=== PATIENT | female | born 1960 | race Caucasian/White ===

== ENCOUNTER → 2017-06-02 | Outpatient (CLI) | payer OTHER ==
--- NOTE | 2017-06-02 10:38 | NM ---
EXAMINATION TYPE: NM stress cardiolite complete DATE OF EXAM: 06/02/2017 COMPARISON: NONE HISTORY: Bundle branch block TECHNIQUE: After the intravenous administration of 10.66 mCi Tc 99m Sestamibi - Rest images obtained 55 minutes post injection. The patient exercised using a ULICES protocol and 1 minute prior to peak exercise was injected with 28 mCi Tc 99m Sestamibi - Stress images obtained 25 minutes post injectio n. FINDINGS: Targeted heart rate was achieved during performance of the study. Review of stress and rest SPECT ev ges demonstrates no distinct perfusion abnormality. Gated analysis shows normal wall motion with an estimated left ventricular ejection fraction of 68 %. IMPRESSION: No scintigraphic evidence for reversible ischemia
--- NOTE | 2017-06-02 14:19 | EST ---
EXERCISE STRESS DATE OF SERVICE: 06/02/2017 AGE: 56 SEX: Female HT: 5'1" WT: 147 pounds PROTOCOL: CARDIOLITE ULICES STAGE: II DURATION OF EXERCISE: 5 minutes HEART RATE REST: 83 BLOOD PRESSURE REST: 128/92 MAXIMUM HEART RATE ACHIEVED: 147 MAXIMUM BLOOD PRESSURE: 174/97 85% MPHR: 154 100% MPHR: 163 METS: 6.0 INDICATIONS: Right bundle branch block. CLINICAL INFORMATION: Baseline rhythm is sinus mechanism, rate of 83, normal axis and intervals with RSR prime. Baseline blood pressure 128/92 mmHg. Patient exercised on Ulices protocol for 5 minute reaching peak rate 147 beats per minute, which is equal to 90% maximum predicted heart rate. Peak blood pressure 174/97 mmHg. Test was terminated secondary to fatigue. There was no chest pain. Electrocardiograph monitoring revealed no evidence of diagnostic ischemic ST deviation. Cardiolite was injected at peak exercise. CONCLUSION: 1. Decreased exercise tolerance with normal electrocardiograph response to exercise. 2. Nuclear images will be reported separately. MMODL / IJN: [id number] /
== END | disposition home or self-care (01) ==
LOC: RADNMMAIN 07:47
PROVIDERS: ATTEND Internal Medicine
DX: I45.10 Unspecified right bundle-branch block (principal)
CPT/HCPCS: 93017; 78452; A9500

== ENCOUNTER 2018-02-08 09:39 | Day surgery (SDC) | payer OTHER ==
[2018-02-01 11:47] VITALS: BMI 27.3
--- NOTE | 2018-02-07 16:08 | HP ---
HISTORY AND PHYSICAL DATE OF SURGERY: 02/08/2018 Dena Moulton is a 57-year-old patient seen with progressive right knee pain. We discussed treatment options. She elected to proceed with arthroscopy. Consent was obtained. PAST MEDICAL HISTORY: Hyperlipidemia. PAST SURGICAL HISTORY: Noncontributory. DAILY MEDICATIONS: 1. Atorvastatin. 2. Furosemide. 3. [place]. ALLERGIES: NONE REPORTED. SOCIAL HISTORY: Patient smokes one pack cigarettes a day. PHYSICAL EVALUATION OF RIGHT KNEE: Range of motion negative negative 2 to 110 degrees. Mild effusion. Tenderness, medial and lateral joint lines. Positive medial Jack's. Positive lateral Jack's. Ligaments stable. Hip rotation without pain. Distal neurovascular exam intact. RADIOGRAPHS: Radiographs of the right knee revealed moderate osteoarthritic changes. Right knee MRI revealed lateral meniscal tear, osteoarthritis and joint effusion. IMPRESSION: 1. Internal derangement of right knee with meniscal tear. 2. Right knee osteoarthritis. 3. Hyperlipidemia. PLAN: Right knee arthroscopy with partial meniscectomy and debridement. MMODL / IJN: [id number] /
[~2018-02-08 09:39] MED LIST: ceFAZolin 1,000 MG in EMPTY BAG 1 BAG IVPB ONE
[2018-02-08] MEDS ORDERED: LACTATED RINGERS 1,000 ML IV ONE ×2 (10:20→13:47)
[2018-02-08] MEDS ORDERED: LIDOCAINE 1% 20 ML VIAL (10MG/ML) FOR IV START INTRADERMA ONE (10:20)
[2018-02-08] MEDS ORDERED: ONDANSETRON 4 MG/2 ML VIAL IVP ONE (10:21)
[2018-02-08] MEDS ORDERED: PROPOFOL 10 MG/ML 20 ML VIAL IV ONE (12:20)
[2018-02-08] MEDS ORDERED: ceFAZolin 1,000 MG VIAL ONE (12:20)
[2018-02-08] MEDS ORDERED: LIDOCAINE 1% INJ 10MG/ML (20 ML MDV) ONE (12:20)
[2018-02-08] MEDS ORDERED: MIDAZOLAM 2 MG/2 ML VIAL ONE (12:20)
[2018-02-08] MEDS ORDERED: fentaNYL (PF) 50 MCG/ML 2 ML AMP ONE (12:20)
[2018-02-08] MEDS ORDERED: SUCCINYLCHOLINE CHLORIDE 100 MG/5 ML SYR IV ONE (12:20)
[2018-02-08] MEDS ORDERED: BUPIVACAIN-EPI 0.25%-1:200,000 30 ML VIAL INTRAARTIC ONE (12:35)
--- NOTE | 2018-02-08 13:15 | P.OP ---
Date of Procedure: 02/08/18 Preoperative Diagnosis: Internal range right knee Postoperative Diagnosis: 1. Tear medial and lateral meniscus right knee 2. Grade 2 chondromalacia medial femoral condyle right knee 3. Grade 3 chondromalacia patella right knee 4. Reactive synovitis medial, lateral and suprapatellar compartments right knee Procedure(s) Performed: 1. Arthroscopic partial medial and lateral meniscectomy right knee 2. Arthroscopic chondroplasty medial femoral condyle right knee 3. Arthroscopic chondroplasty patella right knee 4. Arthroscopic partial synovectomy medial, lateral and suprapatellar compartments right knee Anesthesia: SADAFA, local Surgeon: Buddy Perez Estimated Blood Loss (ml): 5 Pathology: none sent Condition: stable Disposition: PACU Indications for Procedure: 57-year-old patient seen with progressive right knee pain. After having treatment options discussed, she elected to proceed with arthroscopy. Operative Findings: see description of procedure Description of Procedure: Patient was taken to the operative suite. Patient underwent a general anesthetic by the department of anesthesia. Patient was given preoperative antibiotics. The right lower extremity was placed in a well-padded arthroscopic leg barney. The right leg was prepped and draped in the normal sterile orthopedic fashion. A lateral parapatellar and suprapatellar incision was made. Trochars were inserted. Arthroscopy was initiated. Suprapatellar pouch revealed diffuse thick reactive synovitis. The patellofemoral joint appeared to articulate congruently. There was grade 3 chondromalacia of the patella with some small osteochondral tears present. The scope was guided into the medial gutter. No loose bodies or plica were identified. The scope was then guided into the medial compartment. A medial parapatellar incision was made. Trocar inserted followed by probe. There was a radial tear posterior horn medial meniscus. There were grade 2 chondromalacia changes medial femoral condyle with some osteochondral tears present. There was reactive synovitis anteriorly. I performed a partial medial meniscectomy down to stable tissue. I performed a chondroplasty of the medial femoral condyle down to stable tissue. I performed a partial synovectomy. The residual meniscus was probed and found to be stable. The residual osteochondral surface was stable. There was good decompression of the synovitis. Scope and probe were then guided into the intercondylar notch. Cruciates were identified, probed and found to be stable. The scope and probe were then guided into lateral compartment. There was a complex tear involving the anterior horn and midbody of the lateral meniscus. There was thick synovitis anteriorly. There were mild grade 1 chondromalacia changes. I performed a partial lateral meniscectomy down to stable tissue. I performed a partial synovectomy decompressing the reactive synovitis. The residual meniscus was stable. There was good decompression of the synovitis. The scope was in guided back into the suprapatellar compartment. I introduced a motorized shaver into the super patellar compartment. I debrided some piecemeal fragments of meniscus I encountered. I performed a chondroplasty of the patella down to stable tissue. I performed a partial synovectomy. The residual osteochondral surface of the patella stable. There was good decompression synovitis. Instruments were now removed from the joint. The joint was infiltrated with .25% Marcaine. Steri-Strips were applied to the portal sites. Sterile dressings were applied. The patient was placed into a EMELINA hose. No tourniquet was utilized. The patient was awakened, transferred to a bed and taken to recovery stable satisfactory condition.
[2018-02-08 13:21] VITALS: TEMP 96.8
[2018-02-08 13:25] VITALS: RESP 16
[2018-02-08] MEDS: HYDROmorphone 1 MG/ML 1 ML SYRINGE IVP ONE ×4 (13:25→13:45)
[2018-02-08] MEDS ORDERED: KETOROLAC 30 MG/ML 1 ML VIAL IVP ONE (13:54)
[2018-02-08] MEDS ORDERED: HYDROcodone/APAP 10-325MG 1 EACH TAB PO ONE ×2 (14:20)
[2018-02-08 14:35] VITALS: BP 135/75; PULSE 77
== END 2018-02-08 14:52 | disposition home or self-care (01) ==
LOC: OR 09:39
PROVIDERS: ATTEND Orthopaedic Surgery
DX: M23.341 Other meniscus derangements, anterior horn of lateral meniscus, right knee (principal); M23.321 Other meniscus derangements, posterior horn of medial meniscus, right knee; M65.861 Other synovitis and tenosynovitis, right lower leg; M22.41 Chondromalacia patellae, right knee; F41.9 Anxiety disorder, unspecified; E78.5 Hyperlipidemia, unspecified; F17.210 Nicotine dependence, cigarettes, uncomplicated; M17.11 Unilateral primary osteoarthritis, right knee; Z79.891 Long term (current) use of opiate analgesic; Z79.899 Other long term (current) drug therapy
CPT/HCPCS: 81025; 29880; J2250; J2405; J0690; J2001; J3010; J1885; J1170; J0330; J2704

== ENCOUNTER → 2019-06-17 | Outpatient (CLI) | payer MEDICARE, OTHER ==
--- NOTE | 2019-06-18 11:48 | MR ---
EXAMINATION TYPE: MR knee RT wo con DATE OF EXAM: 06/17/2019 COMPARISON: Outside radiographs dated 05/21/2019 HISTORY: RT Knee pain TECHNIQUE: Multiplanar, multisequence imaging of the right knee is performed without IV contrast. FINDINGS: MEDIAL MENISCUS: There is a radial tear of the free edge of the posterior horn of the medial meniscus . Anterior horn is intact and unremarkable. LATERAL MENISCUS: There is a subtle radial tear of the free edge of the posterior horn of the lateral meniscus. Anterior horn is intact and unremarkable. CRUCIATE LIGAMENTS: Increased signal of the insertional fibers of the anterior cruciate ligament with out discontinuity indicative of mid grade sprain. Posterior cruciate ligament is intact and unremarka ble. COLLATERAL LIGAMENTS: The medial collateral ligament and lateral collateral ligament complex are inta ct and unremarkable. EXTENSOR MECHANISM: Visualized quadriceps and patellar tendons are intact. There is slight increased signal in the insertional and originating fibers of the patellar tendon indicative of low-grade tendi nopathy. No discontinuity. EFFUSION: No significant suprapatellar joint effusion. POPLITEAL CYST: Very trace amount of fluid between the semimembranosus and medial head of the gastroc nemius negative very small popliteal cyst. TRICOMPARTMENT SPACES: Aligned. Very small tricompartmental osteophytes. CARTILAGE: There is a partial thickness defect of the trochlear cartilage abutting a defect of the pa tellar apex that is also partial thickness. Near complete thickness defect measures 5 mm of the media l facet near the patellar apex. There is underlying subchondral cystic change of the patella and mild bone marrow edema. There is mild generalized cartilaginous thinning and heterogeneity of the medial compartment and to a lesser degree of the lateral compartment. IMPRESSION: 1. Radial tear of the free edge of the posterior horn of the medial meniscus and very subtle radial t ear of the free edge of the posterior horn of the lateral meniscus as well. 2. Mid grade insertional fiber anterior cruciate ligament sprain. Low-grade insertional and originati ng fiber patellar tendinopathy. 3. Mild tricompartmental arthropathy and chondrosis with chondrosis most involving the patellofemoral compartment resulting in subchondral cystic change and mild pulmonary edema of the patella.
== END | disposition home or self-care (01) ==
LOC: RADMRIMAIN 12:10
PROVIDERS: ATTEND Orthopaedic Surgery
DX: S83.241A Other tear of medial meniscus, current injury, right knee, initial encounter (principal); S83.281A Other tear of lateral meniscus, current injury, right knee, initial encounter; S83.511A Sprain of anterior cruciate ligament of right knee, initial encounter; M12.861 Other specific arthropathies, not elsewhere classified, right knee

== ENCOUNTER → 2022-09-16 | Outpatient (CLI) | payer MEDICARE ==
--- NOTE | 2022-09-20 08:22 | MM ---
Reason for Exam: Screening (asymptomatic). Patient History: Menarche at age 11. First Full-Term at age 16. Postmenopausal. Risk Values: Christiana 5 year model risk: 1.1%. NCI Lifetime model risk: 5.0%. Prior Study Comparison: No prior studies available for comparison. Tissue Density: There are scattered fibroglandular densities. Findings: Analyzed By CAD. There is no suspicious group of microcalcifications or new suspicious mass in either breast. Overall Assessment: Negative, BI-RAD 1 Management: Screening Mammogram of both breasts in 1 year. . Patient should continue monthly self-breast exams. A clinical breast exam by your physician is recommended on an annual basis. This exam should not preclude additional follow-up of suspicious palpable abnormalities. Note on Christiana scores and lifetime risk: 1. A Christiana score greater than 3% is considered moderate risk. If this is the case, consider specialist referral to assess eligibility for a risk reducing agent. 2. If overall lifetime risk for the development of breast cancer is 20% or higher, the patient may qualify for future screening with alternating mammogram and breast MRI. Electronically signed and approved by: Esteban Munoz M.D. Radiologis
== END | disposition home or self-care (01) ==
LOC: RADMAMWWP 10:52
PROVIDERS: ATTEND Internal Medicine
DX: Z12.31 Encounter for screening mammogram for malignant neoplasm of breast (principal); Z78.0 Asymptomatic menopausal state
CPT/HCPCS: 77067

== ENCOUNTER → 2024-07-18 | Outpatient (CLI) | payer MEDICARE ==
--- NOTE | 2024-07-18 15:05 | MM ---
Reason for Exam: Screening (asymptomatic). Last mammogram was performed 1 year(s) and 10 month(s) ago. Patient History: Menarche at age 11. First Full-Term at age 16. Postmenopausal. Risk Values: Christiana 5 year model risk: 1.2%. NCI Lifetime model risk: 4.7%. Prior Study Comparison: 09/16/2022 Bilateral MG screening mammo w CAD, [facility]. Tissue Density: The breasts are heterogeneously dense, which may obscure small masses. Findings: Analyzed By CAD. There is no suspicious group of microcalcifications or new suspicious mass in either breast. Stable subcentimeter well osseous Chronic nodularity in the upper left breast anterior margin unchanged may be related to nodular tissue is not well seen on the cc view. Overall Assessment: Benign, BI-RAD 2 Management: Screening Mammogram of both breasts in 1 year. . Patient should continue monthly self-breast exams. A clinical breast exam by your physician is recommended on an annual basis. This exam should not preclude additional follow-up of suspicious palpable abnormalities. Note on Christiana scores and lifetime risk: 1. A Christiana score greater than 3% is considered moderate risk. If this is the case, consider specialist referral to assess eligibility for a risk reducing agent. 2. If overall lifetime risk for the development of breast cancer is 20% or higher, the patient may qualify for future screening with alternating mammogram and breast MRI. [facility], , 07/18/2024 2:44 PM. Electronically signed and approved by: Lazaro Gaston M.D. Radiologis
--- NOTE | 2024-07-18 15:28 | BD ---
EXAMINATION TYPE: Axial Bone Density DATE OF EXAM: 07/18/2024 CLINICAL HISTORY: 63 years old Female. ICD-10 CODE: Z78.0 Postmenopausal , Additional History: Height: 60 Weight: 134.1 FRAX RISK QUESTIONS: Alcohol (3 or more units per day): no Family History (Parent hip fracture): no Glucocorticoids (More than 3mos): no (Ex: prednisone, prednisolone, methylprednisolone, dexamethasone, and hydrocortisone). History of Fracture in Adulthood: no Secondary Osteoporosis: 1. Type 1 Diabetes: no 2. Hyperthyroidism: no 3. Menopause before 45: no 4. Malnutrition: no 5. Chronic liver disease: no Rheumatoid Arthritis: no Current Tobacco Use: no RISK FACTORS HISTORY OF: Surgery to Spine/Hip(right/left)/Wrist (right/left): no EXAM MEASUREMENTS: Bone mineral densitometry was performed using the [employer] System. Bone mineral density as measured about the Lumbar spine is: ----- L1-L4(G/cm2): 0.964 T Score Values are as follows: ----- L1: -2.0 ----- L2: -2.3 ----- L3: -1.6 ----- L4: -1.6 ----- L1-L4: -1.8 Z Score Values are as follows: ----- L1: -0.3 ----- L2: -0.6 ----- L3: 0.1 ----- L4: 0.1 ----- L1-L4: -0.1 Bone mineral density : baseline Bone mineral density about the R hip (g/cm2): 0.961 Bone mineral density about the L hip (g/cm2): 0.978 T Score values are as follows: -----R Neck: -0.4 -----L Neck: -0.5 -----R Total: -0.4 -----L Total: -0.1 Z Score values are as follows: -----R Neck: 1.1 -----L Neck: 1.0 -----R Total: 0.9 -----L Total: 1.0 Bone mineral density : baseline FRAX%s: The graph provided illustrates a 7.7% chance for a major osteoporotic fx and a 0.3% chance fo r the hips probability for fx in 10 years time. IMPRESSION: Osteopenia (T Score between -2.5 and -1). There is slightly increased risk of fracture and the patient may be considered for treatment. Re-Screen 2-5 years. NOTE: T-SCORE=SD OF THE YOUNG ADULT MEAN. [facility], , 07/18/2024 3:26 PM
== END | disposition home or self-care (01) ==
LOC: RADMAMWWP 14:11
PROVIDERS: ATTEND Internal Medicine
DX: Z12.31 Encounter for screening mammogram for malignant neoplasm of breast (principal); R92.333 Mammographic heterogeneous density, bilateral breasts; E21.3 Hyperparathyroidism, unspecified; M85.89 Other specified disorders of bone density and structure, multiple sites; Z78.0 Asymptomatic menopausal state
CPT/HCPCS: 77063; 77067; 77080